=== PATIENT | female | born 1995 | race Caucasian/White ===

== ENCOUNTER → 2020-01-30 | Outpatient (CLI) | payer BC | END | disposition home or self-care (01) | LOC: RESCLI 13:10 | PROVIDERS: ATTEND Internal Medicine | DX: J45.20 Mild intermittent asthma, uncomplicated (principal); Z91.018 Allergy to other foods; Z78.9 Other specified health status; Z98.890 Other specified postprocedural states; Z23 Encounter for immunization ==